=== PATIENT | female | born 2000 | race Caucasian/White ===

== ENCOUNTER 2019-01-03 13:27 | Emergency (ER) | payer SELFPAY ==
[~2019-01-03] VITALS: Ht 165.1 cm; Wt 72.7 kg
[2019-01-03 13:38] VITALS: BP 132/73; TEMP 98.7
[2019-01-03 15:08] VITALS: PULSE 84
== END 2019-01-03 15:08 | disposition home or self-care (01) ==
LOC: COL.ER 13:27
DX: S63.501A Unspecified sprain of right wrist, initial encounter (principal); X50.0XXA Overexertion from strenuous movement or load, initial encounter; Y93.74 Activity, frisbee; Y92.830 Public park as the place of occurrence of the external cause